=== PATIENT | male | born 1980 | race African-American/Black ===

== ENCOUNTER 2018-10-26 10:24 | Day surgery (SDC) | payer OTHER ==
[2018-10-22 12:40] VITALS: BMI 59.5
[2018-10-26] MEDS ORDERED: BUPIVACAINE HCL/PF 2.5 MG/ML - 30 ML VIAL IJ ONE (14:53)
[2018-10-26] MEDS ORDERED: PROPOFOL 20 ML ONE ×2 (15:09→15:31)
[2018-10-26] MEDS ORDERED: ceFAZolin SODIUM 1 GM VIAL ONE (15:35)
[2018-10-26] MEDS ORDERED: ONDANSETRON 4 MG/2 ML VIAL ONE ×2 (15:47→16:20)
[2018-10-26] MEDS ORDERED: DEXAMETHASONE SOD PHOSPHATE 4 MG/1 ML VIAL ONE (15:47)
[2018-10-26] MEDS ORDERED: ACETAMINOPHEN 325 MG TABLET (FP) PO PRN (16:18)
[2018-10-26] MEDS ORDERED: oxyCODONE HCL 5 MG TABLET PO PRN (16:18)
[2018-10-26] MEDS ORDERED: ONDANSETRON 4 MG/2 ML VIAL IVPUSH PRN (16:18)
[2018-10-26] MEDS ORDERED: KETOROLAC TROMETHAMINE 30 MG/1 ML VIAL IVPUSH PRN (16:23)
[2018-10-26] MEDS ORDERED: KETOROLAC TROMETHAMINE 30 MG/1 ML VIAL ONE (16:24)
[2018-10-26] MEDS ORDERED: LACTATED RINGERS SOLUTION 1,000 ML IV SCH (16:30)
[2018-10-26 17:09] VITALS: TEMP 98.1
[2018-10-26 17:56] VITALS: BP 126/95; PULSE 72
--- NOTE | 2018-10-29 12:41 | OP ---
DATE OF OPERATION: 10/26/2018 SURGEON: Salazar Palencia MD SCHOOL LEADER: CELINA Braxton PREOPERATIVE DIAGNOSES: 1. Left knee medial and lateral meniscal tear. 2. Left knee cartilage tear. 3. Left knee synovitis. POSTOPERATIVE DIAGNOSES: 1. Left knee medial and lateral meniscal tear. 2. Left knee cartilage tear. 3. Left knee synovitis. PROCEDURE: 1. Left knee arthroscopy with partial meniscectomy medial and lateral meniscus, CPT code 05244. 2. Left knee arthroscopy with chondroplasty and abrasion-plasty, CPT code 2979. 2. Left knee arthroscopy with synovectomy, CPT code 03015. FINDINGS: 1. Medial meniscus body and posterior horn tear. 2. Lateral meniscus posterior horn tear. 3. Synovitis patellofemoral medial and lateral notch. 4. Anterior grade 1-2 cartilage injury medial femoral condyle. 5. ACL and PCL intact. 6. Minimal cartilage changes lateral joint line. 7. Minor grade 1-2 cartilage changes anterior medial femoral condyle and patellofemoral joint. PROCEDURE: Informed consent was obtained. The patient came to the operating room, where the lower extremity was prepped and draped in a sterile fashion. A tourniquet was placed on the upper thigh, but not inflated. Using standard arthroscopic technique, a lateral incision and portal was made to allow for introduction of the camera into the suprapatellar bursa. This was then taken to the medial joint line, where under direct visualization, a medial incision and portal was made. Excessive synovium noted in the medial, lateral and patellofemoral and notch area was removed by an upbiter, shaver and Bovie cautery. This was found to bring in inflammatory tissue into the joint surface, a source of pain and dysfunction. Probing of the medial and lateral meniscus found tears, as described in the findings. These were removed with the upbiter and shaver and taken back to a stable rim. Grade 2 to 3 degenerative changes were treated with a chondroplasty, removing all flaking surfaces with low-setting Bovie along the periphery to prevent further flaking. Grade 4 changes, as noted, were treated with an abrasoplasty, creating a bleeding surface at the bone/cartilage interface. Aggressive debridement with shaver/suman created bleeding surface. Micro fracture also done when indicated in findings. All areas of the knee were once again reexamined. The knee was then drained and a single suture was placed in all portals. A sterile dressing was placed and the patient was transferred to the recovery room without complication. The PA listed above was present and assisted at surgery. Their presence was absolutely medically necessary for the completion of the procedure. They helped hold the arthroscopy, pass instruments (and implants when indicated) and the procedure could not have been completed without their assistance. SALAZAR PALENCIA M.D. [id number]
--- NOTE | 2018-10-31 18:33 | PATH ---
Surgical Pathology Report Patient Name: VELIA PITTS Med. Rec. #: [id number] /Age/Gender: 1980 (Age: 37) / M Account: [id number] [facility] Taken: 10/26/2018 Received: 10/26/2018 Reported: 10/31/2018 Physicians: Salazar Taylor M.D. Specimen(s) Received SHAVINGS LEFT KNEE Clinical History Internal derangement left knee Final Diagnosis LEFT KNEE SHAVINGS: FRAGMENTS OF CARTILAGE AND FIBROSYNOVIAL TISSUE WITH DEGENERATIVE CHANGE. Electronically Signed Priti Varela M.D. Gross Description Received in formalin labeled "shavings left knee " are multiple fragments of white-moreno fibrocartilaginous soft tissue measuring 4 x 4 x 0.8 cm aggregate. Metal Leaf Layer sections are submitted in one cassette. [email or web address]/10/29/2018 josé miguel/10/29/2018
== END 2018-10-26 17:40 | disposition home or self-care (01) ==
LOC: FASU 10:24
PROVIDERS: ATTEND Orthopaedic Surgery
PROC: 0SBD4ZZ Excision of Left Knee Joint, Percutaneous Endoscopic Approach (ICD-10-PCS; 2018-10-26)
PROC: 0SBD4ZZ Excision of Left Knee Joint, Percutaneous Endoscopic Approach (ICD-10-PCS; 2018-10-26)
PROC: 0SBD4ZZ Excision of Left Knee Joint, Percutaneous Endoscopic Approach (ICD-10-PCS; principal; 2018-10-26 15:43)
DX: S83.242A Other tear of medial meniscus, current injury, left knee, initial encounter (principal); S83.282A Other tear of lateral meniscus, current injury, left knee, initial encounter; S83.8X2A Sprain of other specified parts of left knee, initial encounter; M65.862 Other synovitis and tenosynovitis, left lower leg; X58.XXXA Exposure to other specified factors, initial encounter; Y93.9 Activity, unspecified; Y92.9 Unspecified place or not applicable
CPT/HCPCS: 88304-TC; 94760